=== PATIENT | female | born 1955 | race Caucasian/White ===

== ENCOUNTER 2019-03-19 10:05 | Day surgery (SDC) | payer OTHER ==
--- OUTSIDE RECORDS SUMMARY | 2019-03-19 10:21 | XMS REPORT ---
:1955 [facility] Address [address] [place] [address] Dr. Us [address] [place] [id number] Care Team Providers Name Role Phone Unavailable Unavailable Unavailable Problems This patient has no known problems. Allergies, Adverse Reactions, Alerts This patient has no known allergies or adverse reactions. Medications This patient has no known medications.
--- OUTSIDE RECORDS SUMMARY | 2019-03-19 10:21 | XMS REPORT ---
:1955 Author Organization [employer] Care Team Providers Name Role Phone Brandy Hameed Provider Role Unavailable Allergies, Adverse Reactions, Alerts Substance Reaction Event Type codeine Info Not Available Drug Allergy Problems Problem Type Condition Code Onset Dates Condition Status Assessment Arthralgia, unspecified joint M25.50 Active Assessment Anxiety F41.9 Active Assessment Allergic rhinitis, unspecified J30.9 Active seasonality, unspecified trigger Assessment Acute pharyngitis, unspecified J02.9 Active etiology Assessment Myalgia M79.10 Active Problem Anxiety F41.9 Active Problem Osteoporosis M81.0 Active Problem Hyperlipidemia E78.5 Active Problem Allergic rhinitis, unspecified J30.9 Active seasonality, unspecified trigger Problem Myalgia M79.10 Active Problem Thyroid disease E07.9 Active Problem Arthralgia, unspecified joint M25.50 Active Medications Medication Code Code Instructions Start End Status Dosage System Date Date Levothyroxine [facility] 63526140230 50 MCG Orally Active 1 tablet Sodium Once a day in the morning on an empty stomach BusPIRone HCl ND 75920730164 7.5 MG Orally Nov 20, Active 1 tablet Twice a day 2019 as needed for anxiety Calcium [facility] [address]-47 Active not defined Levothyroxine ND 72907244439 25 MCG Orally Active 1 tablet Sodium Once a day in the morning on an empty stomach Restasis ND 25164676332 0.05 % Active 1 drop Ophthalmic into Twice a day affected eye Sertraline HCl [facility] [address]-63 100 MG Orally Active 1 /2 Once a day tablet Probiotic ND 43756110037 - Orally Active as directed Prilosec OTC ND 59676712697 20 MG Orally Active 1 tablet Once a day 30 minutes before morning meal Reclast ND 71565948283 5 MG/100ML Active as Intravenous directed Results Name Result Date Reference Range Unit Abnormality Flag STREP A+ RAPID Summary Purpose [employer] Submission
[2019-03-19] MEDS ORDERED: Zoledronic Acid/Mannitol/Water 5 MG/100 ML INFUS.BOT IV NR (11:00)
[2019-03-19 11:58] VITALS: BP 119/75; TEMP 98.4; O2SAT 100; BMI 21.4
== END 2019-03-19 11:40 | disposition home or self-care (01) ==
LOC: DS 10:05
PROVIDERS: ATTEND Internal Medicine
DX: M81.0 Age-related osteoporosis without current pathological fracture (principal)
CPT/HCPCS: 96365; J3489

== ENCOUNTER 2020-03-28 10:05 | Day surgery (SDC) | payer OTHER ==
[2020-03-28] MEDS ORDERED: Zoledronic Acid/Mannitol/Water 5 MG/100 ML INFUS.BOT IV NR (11:00)
[2020-03-28 15:48] VITALS: BP 125/68; TEMP 98; O2SAT 100
[2020-03-28 15:49] VITALS: BMI 21.6
== END 2020-03-28 11:20 | disposition home or self-care (01) ==
LOC: DS 10:05
PROVIDERS: ATTEND Internal Medicine
DX: M81.0 Age-related osteoporosis without current pathological fracture (principal)
CPT/HCPCS: 96365; J3489